=== PATIENT | female | born 1965 | race Caucasian/White ===

== ENCOUNTER 2019-06-19 14:47 | Outpatient (CLI) | payer BC, SELFPAY ==
--- NOTE | 2019-06-19 14:56 | XR_ITS ---
WS: [id number] DEXA (DUAL ENERGY X-RAY ABSORPTIOMETRY) Bone mineral density was performed using a [employer] machine. HISTORY: OSTEOPENIA OF MULTIPLE SITES COMPARISON: 09/08/2016 Lumbar spine BMD (L1-L4): 0.981 T score: -1.7 Z score: -1.6 Total hip BMD: Left: 0.905. T score: -0.8 Z score: -0.6 Right: 0.858. T score: -1.2 Z score: -1.0 10 year probability of a major osteoporotic fracture is 6%. Compared to the prior study from 09/08/2016. Lumbar spine bone mineral density has decreased by 1.1%. Bilateral hips bone mineral density has decreased by 1.1%. XR/XR DEXA axial skeleton* [id number] IMPRESSION: OSTEOPENIA based upon the WHO classification for females. No significant change in bone mineral density since the prior study.
== END 2019-06-19 14:48 | disposition home or self-care (01) ==
LOC: RADWPI 14:55
PROVIDERS: Family Provider Family Medicine; PCP Family Medicine; Visit Provider Family Medicine
DX: M85.89 Other specified disorders of bone density and structure, multiple sites (principal)
CPT/HCPCS: 77080